=== PATIENT | female | born 1940 | race Caucasian/White ===

== ENCOUNTER 2023-02-06 06:42 | Day surgery (SDC) | payer OTHER ==
[2023-02-05 11:10] LABS: ALBUMIN 3.2 G/DL (3.4-5.0); ANION GAP 4 (8-16); BLOOD UREA NITROGEN 22 MG/DL (7-18); BUN/CREATININE RATIO 19.1 (10.0-20.0); CALCIUM 10.2 MG/DL (8.5-10.1); CHLORIDE 105 MMOL/L (99-107); CREATININE 1.15 MG/DL (0.40-0.90); GLUCOSE 105 MG/DL (70-104); POTASSIUM 4.2 MMOL/L (3.5-5.1); SODIUM 139 MMOL/L (135-145); eGFR 45 ML/MIN
[2023-02-05 11:11] LABS: BASOPHILS # (AUTO) 0.1 X10'3 (0-0.2); BASOPHILS % (AUTO) 0.8 % (0-1); EOSINOPHILS # (AUTO) 0.2 X10'3 (0-0.9); EOSINOPHILS % (AUTO) 2.3 % (0-6); HEMATOCRIT 40.8 % (35.0-45.0); HEMOGLOBIN 13.4 g/dl (12.0-16.0); INR 1.1 INR; LYMPHOCYTES # (AUTO) 1.5 X10'3 (1.1-4.8); MEAN CORPUSCULAR HEMOGLOBIN 30.5 PG (27.0-31.0); MEAN CORPUSCULAR HGB CONC 32.9 g/dL (33.0-36.5); MEAN CORPUSCULAR VOLUME 92.5 FL (78-98); MEAN PLATELET VOLUME 7.6 FL (7.4-10.4); MONOCYTES # (AUTO) 0.6 X10'3 (0-0.9); MONOCYTES % (AUTO) 9.1 % (2-12); NEUTROPHILS # (AUTO) 4.3 X10'3 (1.8-7.7); NEUTROPHILS % (AUTO) 64.8 % (42-75); PLATELET COUNT 209 X10'3 (140-440); PROTHROMBIN TIME 11.3 SECONDS (9.0-12.0); RED BLOOD COUNT 4.41 X10'6 (4.20-5.60); RED CELL DISTRIBUTION WIDTH 14.5 % (11.5-14.5); WHITE BLOOD COUNT 6.6 X10'3 (4.5-11.0)
[~2023-02-06] VITALS: Ht 160 cm; Wt 143.1 kg
[2023-02-06] VITALS (15 sets, daily range): BP systolic 104–154; BP diastolic 59–117; PULSE 52–135; RESP 12–26; TEMP 98.2; O2SAT 93–98
[2023-02-06] MEDS ORDERED: morphine 10mg/ml inj. IV ONE (07:10)
[2023-02-06] MEDS ORDERED: MIDAZolam 1mg/ml 10ml vial IV ONE (07:10)
[2023-02-06] MEDS ORDERED: amiodarone 150mg/dext, iso-os 100 ML IV ONE (07:10)
[2023-02-06] MEDS ORDERED: atropine 0.1mg/ml 10ml syringe IV ONE (07:10)
[2023-02-06] MEDS ORDERED: diphenhydrAMINE 25mg capsule PO ONE (07:10)
[2023-02-06] MEDS ORDERED: normal saline 1000ml 1,000 ML IV SCH (07:10)
[2023-02-06] MEDS ORDERED: LORazepam 0.5 MG tablet PO ONE (07:10)
[2023-02-06] MEDS ORDERED: DILT120C19 PO (07:15)
[2023-02-06] MEDS ORDERED: SOTA80TA73 PO (07:15)
[2023-02-06] MEDS ORDERED: FURO20TA4 PO (07:15)
[2023-02-06] MEDS ORDERED: UBID100C16 PO (07:15)
[2023-02-06] MEDS ORDERED: OMEG-5 PO (07:15)
[2023-02-06] MEDS ORDERED: ROSU20TA73 PO (07:15)
[2023-02-06] MEDS ORDERED: BENA40TA90 PO (07:15)
[2023-02-06] MEDS ORDERED: ASPI-1264 PO (07:15)
[2023-02-06] MEDS ORDERED: CHOL20002 PO (07:15)
== END 2023-02-06 10:55 | disposition home or self-care (01) ==
LOC: SSTAY O 06:42
PROVIDERS: ATTEND Internal Medicine Cardiovascular Disease
DX: I48.91 Unspecified atrial fibrillation (principal); I48.92 Unspecified atrial flutter; I08.3 Combined rheumatic disorders of mitral, aortic and tricuspid valves; I10 Essential (primary) hypertension; E78.5 Hyperlipidemia, unspecified; G47.30 Sleep apnea, unspecified; Z79.01 Long term (current) use of anticoagulants; Z79.82 Long term (current) use of aspirin; Z79.899 Other long term (current) drug therapy
CPT/HCPCS: 36415; 80048; 85025; 85610; 92960; 93005; 93312; 94760; J2250; J2274; J7030; 96360; A4620

== ENCOUNTER 2023-09-06 08:56 | Emergency (ER) | payer OTHER ==
[~2023-09-06] VITALS: Ht 157.5 cm; Wt 137.7 kg
[~2023-09-06 08:56] MED LIST: ASPI-1264 PO; BENA40TA90 PO; CHOL20002 PO; DILT120C19 PO; FURO20TA4 PO; OMEG-5 PO; ROSU20TA73 PO; SOTA80TA73 PO; UBID100C16 PO
[2023-09-06] MEDS ORDERED: KRIL1CAP40 PO (09:51)
[2023-09-06] MEDS ORDERED: FLUT9.9S16 BOTHNARES (09:51)
[2023-09-06] MEDS ORDERED: PRED20TA PO (11:57)
[2023-09-06] MEDS ORDERED: FAMO-128 PO (11:57)
[2023-09-06] MEDS: famotidine 20mg tablet PO ONE (12:07)
[2023-09-06] MEDS: dexamethasone sod phosphate 10mg/ml inj PO STA (12:07)
[2023-09-06 12:32] VITALS: BP 173/67; PULSE 59; RESP 18; TEMP 98.6; O2SAT 96
== END 2023-09-06 12:33 | disposition home or self-care (01) ==
LOC: ER 08:57
DX: K13.0 Diseases of lips (principal); T45.0X5A Adverse effect of antiallergic and antiemetic drugs, initial encounter; I10 Essential (primary) hypertension; Z88.0 Allergy status to penicillin; Z88.5 Allergy status to narcotic agent; Z91.010 Allergy to peanuts; Z79.899 Other long term (current) drug therapy; Y92.89 Other specified places as the place of occurrence of the external cause
CPT/HCPCS: 99283; J1100

== ENCOUNTER 2024-01-05 08:48 | Inpatient (IN) | payer OTHER ==
[~2024-01-05] VITALS: Ht 157.5 cm; Wt 135.4 kg
[~2024-01-05 08:48] MED LIST changes: -ASPI-1264 PO; +FAMO-128 PO; +FLUT9.9S16 BOTHNARES; +KRIL1CAP40 PO; -OMEG-5 PO
[2024-01-05 09:20] VITALS: PULSE 56; RESP 18; O2SAT 98
[2024-01-05] MEDS: ipratropium/albuterol 3ml nebule NEB ONE (09:20)
[2024-01-05 09:26] VITALS: PULSE 59; RESP 16; O2SAT 98
[2024-01-05 09:36] LABS: BASOPHILS # (AUTO) 0.1 X10'3 (0-0.2); BASOPHILS % (AUTO) 0.8 % (0-1); EOSINOPHILS # (AUTO) 0.2 X10'3 (0-0.9); EOSINOPHILS % (AUTO) 2.5 % (0-6); HEMATOCRIT 41.1 % (35.0-45.0); HEMOGLOBIN 13.4 g/dl (12.0-16.0); LYMPHOCYTES # (AUTO) 1.2 X10'3 (1.1-4.8); LYMPHOCYTES % (AUTO) 18.5 % (21-51); MEAN CORPUSCULAR HEMOGLOBIN 30.3 PG (27.0-31.0); MEAN CORPUSCULAR HGB CONC 32.6 g/dL (33.0-36.5); MEAN CORPUSCULAR VOLUME 92.8 FL (78-98); MEAN PLATELET VOLUME 7.4 FL (7.4-10.4); MONOCYTES # (AUTO) 0.6 X10'3 (0-0.9); MONOCYTES % (AUTO) 8.9 % (2-12); NEUTROPHILS # (AUTO) 4.4 X10'3 (1.8-7.7); NEUTROPHILS % (AUTO) 69.3 % (42-75); PLATELET COUNT 201 X10'3 (140-440); RED BLOOD COUNT 4.43 X10'6 (4.20-5.60); RED CELL DISTRIBUTION WIDTH 15.6 % (11.5-14.5); WHITE BLOOD COUNT 6.4 X10'3 (4.5-11.0)
[2024-01-05 09:53] LABS: ALANINE AMINOTRANSFERASE 16 U/L (12-78); ALBUMIN 3.4 G/DL (3.4-5.0); ALKALINE PHOSPHATASE 145 IU/L (46-116); ANION GAP 8 (8-16); ASPARTATE AMINO TRANSFERASE 17 U/L (10-37); BILIRUBIN,TOTAL 1.7 MG/DL (0.1-1.0); BLOOD UREA NITROGEN 15 MG/DL (7-18); BUN/CREATININE RATIO 16.1 (10.0-20.0); CALCIUM 10.3 MG/DL (8.5-10.1); CHLORIDE 107 MMOL/L (99-107); CREATININE 0.93 MG/DL (0.40-0.90); GLUCOSE 107 MG/DL (70-104); POTASSIUM 4.3 MMOL/L (3.5-5.1); SODIUM 142 MMOL/L (135-145); TOTAL CARBON DIOXIDE 27.4 MMOL/L (24-32); TOTAL PROTEIN 6.9 G/DL (6.4-8.2); eCRCL 38 ML/MIN; eGFR 58 ML/MIN
[2024-01-05] MEDS: furosemide 40mg/4ml inj IV ONE (09:54)
[2024-01-05 09:57] LABS: PRO BRAIN NATRIURETIC PEPTIDE 2269 PG/ML (0-450)
[2024-01-05] MEDS ORDERED: potassium Cl 40MEQ/1/2NS 520ml 520 ML IV PRN (10:45)
[2024-01-05] MEDS ORDERED: magnesium hydroxide 30ml (MOM) UD suspension PO PRN (10:45)
[2024-01-05] MEDS ORDERED: acetaminophen 325mg tablet PO PRN (10:45)
[2024-01-05] MEDS ORDERED: ondansetron/PF 4mg/2ml inj IV PRN (10:45)
[2024-01-05] MEDS ORDERED: potassium Cl 20 mEq SR tablet PO PRN ×2 (10:45)
[2024-01-05] MEDS ORDERED: magnesium sulf-water 2g/50mL 50 ML IV PRN (10:45)
[2024-01-05] MEDS ORDERED: magnesium sulf-water 4G/100mL 100 ML IV PRN (10:45)
[2024-01-05] MEDS ORDERED: magnesium Cl slow-release 64mg tablet PO PRN (10:45)
[2024-01-05 17:43] VITALS: BP 171/68; PULSE 56; RESP 20; RESP 24; TEMP 98.3; O2SAT 97
[2024-01-05] MEDS: acetaminophen 325mg tablet PO SCH (17:50)
[2024-01-05] MEDS ORDERED: furosemide 40mg/4ml inj IV SCH (20:00)
[2024-01-05 20:30] VITALS: RESP 18
[2024-01-05] MEDS: furosemide 40mg/4ml inj IV SCH (20:40)
[2024-01-05 20:45] VITALS: PULSE 54; RESP 16; O2SAT 98
[2024-01-05] MEDS: enoxaparin 40mg/0.4ml syringe SQ SCH (21:20)
[2024-01-05 22:00] VITALS: BP 162/70; PULSE 57; RESP 18; TEMP 97.8; O2SAT 94
[2024-01-06] VITALS (8 sets, daily range): BP systolic 146–175; BP diastolic 71–77; PULSE 54–67; RESP 14–22; TEMP 97–98.2; O2SAT 95–98
[2024-01-06 05:59] LABS: BASOPHILS % (AUTO) 0.5 % (0-1); EOSINOPHILS # (AUTO) 0.1 X10'3 (0-0.9); EOSINOPHILS % (AUTO) 1.9 % (0-6); HEMATOCRIT 40.8 % (35.0-45.0); HEMOGLOBIN 13.5 g/dl (12.0-16.0); LYMPHOCYTES # (AUTO) 1.3 X10'3 (1.1-4.8); LYMPHOCYTES % (AUTO) 18.1 % (21-51); MEAN CORPUSCULAR HEMOGLOBIN 30.7 PG (27.0-31.0); MEAN CORPUSCULAR HGB CONC 33.1 g/dL (33.0-36.5); MEAN CORPUSCULAR VOLUME 92.6 FL (78-98); MEAN PLATELET VOLUME 7.4 FL (7.4-10.4); MONOCYTES # (AUTO) 0.9 X10'3 (0-0.9); MONOCYTES % (AUTO) 11.6 % (2-12); NEUTROPHILS % (AUTO) 67.9 % (42-75); PLATELET COUNT 185 X10'3 (140-440); RED BLOOD COUNT 4.41 X10'6 (4.20-5.60); RED CELL DISTRIBUTION WIDTH 15.3 % (11.5-14.5); WHITE BLOOD COUNT 7.4 X10'3 (4.5-11.0)
[2024-01-06 06:15] LABS: ALANINE AMINOTRANSFERASE 15 U/L (12-78); ALBUMIN 3.2 G/DL (3.4-5.0); ALBUMIN/GLOBULIN RATIO 0.9 (1.1-1.5); ALKALINE PHOSPHATASE 132 IU/L (46-116); ANION GAP 8 (8-16); ASPARTATE AMINO TRANSFERASE 14 U/L (10-37); BILIRUBIN,TOTAL 2.5 MG/DL (0.1-1.0); BLOOD UREA NITROGEN 16 MG/DL (7-18); CALCIUM 10.4 MG/DL (8.5-10.1); CHLORIDE 106 MMOL/L (99-107); CREATININE 0.94 MG/DL (0.40-0.90); GLUCOSE 100 MG/DL (70-104); POTASSIUM 4.1 MMOL/L (3.5-5.1); SODIUM 144 MMOL/L (135-145); TOTAL CARBON DIOXIDE 29.8 MMOL/L (24-32); TOTAL PROTEIN 6.6 G/DL (6.4-8.2); eCRCL 37 ML/MIN; eGFR 57 ML/MIN
[2024-01-06] MEDS ORDERED: loratadine 10mg tablet PO ONE ×3 (10:55→11:15)
[2024-01-06] MEDS: famotidine 20mg tablet PO SCH (11:03)
[2024-01-06] MEDS: loratadine 10mg tablet PO STA (11:03)
[2024-01-06] MEDS: diltiazem SR 60mg capsule (twice daily) PO SCH (11:04)
[2024-01-06] MEDS: sotalol 80mg tablet PO SCH (11:04)
[2024-01-06] MEDS: lisinopril 20mg tablet PO SCH (11:05)
[2024-01-06] MEDS ORDERED: famotidine 20mg tablet PO SCH ×2 (16:37→20:00)
[2024-01-06] MEDS ORDERED: sotalol 80mg tablet PO SCH (20:00)
[2024-01-06] MEDS ORDERED: lisinopril 20mg tablet PO SCH (20:00)
[2024-01-06] MEDS ORDERED: diltiazem SR 60mg capsule (twice daily) PO SCH (20:00)
[2024-01-06] MEDS: atorvastatin 20mg tablet PO SCH (20:45)
[2024-01-07] VITALS (7 sets, daily range): BP systolic 141–142; BP diastolic 58–72; PULSE 57–61; RESP 12–20; TEMP 96.4–97.5; O2SAT 90–97
[2024-01-07 06:32] LABS: BASOPHILS % (AUTO) 0.6 % (0-1); EOSINOPHILS # (AUTO) 0.2 X10'3 (0-0.9); HEMATOCRIT 40.9 % (35.0-45.0); HEMOGLOBIN 13.3 g/dl (12.0-16.0); LYMPHOCYTES # (AUTO) 1.5 X10'3 (1.1-4.8); LYMPHOCYTES % (AUTO) 19.1 % (21-51); MEAN CORPUSCULAR HEMOGLOBIN 29.9 PG (27.0-31.0); MEAN CORPUSCULAR HGB CONC 32.6 g/dL (33.0-36.5); MEAN CORPUSCULAR VOLUME 91.9 FL (78-98); MEAN PLATELET VOLUME 7.3 FL (7.4-10.4); MONOCYTES % (AUTO) 12.5 % (2-12); NEUTROPHILS # (AUTO) 4.9 X10'3 (1.8-7.7); NEUTROPHILS % (AUTO) 64.8 % (42-75); PLATELET COUNT 199 X10'3 (140-440); RED BLOOD COUNT 4.44 X10'6 (4.20-5.60); RED CELL DISTRIBUTION WIDTH 15.1 % (11.5-14.5); WHITE BLOOD COUNT 7.6 X10'3 (4.5-11.0)
[2024-01-07 06:50] LABS: ALANINE AMINOTRANSFERASE 16 U/L (12-78); ALBUMIN 3.1 G/DL (3.4-5.0); ALKALINE PHOSPHATASE 125 IU/L (46-116); ANION GAP 5 (8-16); ASPARTATE AMINO TRANSFERASE 18 U/L (10-37); BILIRUBIN,TOTAL 2.7 MG/DL (0.1-1.0); BLOOD UREA NITROGEN 20 MG/DL (7-18); BUN/CREATININE RATIO 19.2 (10.0-20.0); CALCIUM 10.4 MG/DL (8.5-10.1); CHLORIDE 103 MMOL/L (99-107); CREATININE 1.04 MG/DL (0.40-0.90); GLUCOSE 95 MG/DL (70-104); POTASSIUM 3.9 MMOL/L (3.5-5.1); SODIUM 142 MMOL/L (135-145); TOTAL CARBON DIOXIDE 33.6 MMOL/L (24-32); TOTAL PROTEIN 6.2 G/DL (6.4-8.2); eCRCL 34 ML/MIN; eGFR 51 ML/MIN
[2024-01-07] MEDS ORDERED: FLUTICASONE FUROATE BOTHNARES SCH (08:00)
[2024-01-07] MEDS ORDERED: [UNRECOGNIZED DRUG - OTHER] PO SCH (08:00)
[2024-01-07] MEDS ORDERED: PHOSPHO PO SCH (08:00)
[2024-01-07] MEDS ORDERED: AST PO SCH (08:00)
[2024-01-07] MEDS ORDERED: DHA PO SCH (08:00)
[2024-01-07] MEDS ORDERED: non-formulary drug (Ubidecarenone (Coq-10) 100 MG) PO SCH (08:00)
[2024-01-07] MEDS ORDERED: EPA PO SCH (08:00)
[2024-01-07] MEDS ORDERED: KRILL PO SCH (08:00)
[2024-01-07] MEDS: cholecalciferol (vitamin D3) 1,000 unit (25mcg) tablet PO SCH (08:20)
[2024-01-07] MEDS: furosemide 20MG tablet PO SCH (09:29)
[2024-01-07] MEDS: albuterol 2.5 MG/3 ML nebule NEB PRN (11:06)
== END 2024-01-07 13:00 | disposition home or self-care (01) | DRG 291 ==
LOC: ER 08:48 → ED HOLD 10:50 → PCU 3S 16:00
PROVIDERS: ADMIT Internal Medicine; ATTEND Internal Medicine
DX: I11.0 Hypertensive heart disease with heart failure (principal); I50.33 Acute on chronic diastolic (congestive) heart failure; J96.01 Acute respiratory failure with hypoxia; I48.91 Unspecified atrial fibrillation; Z88.0 Allergy status to penicillin; Z88.5 Allergy status to narcotic agent; Z88.8 Allergy status to other drugs, medicaments and biological substances; Z91.018 Allergy to other foods; Z79.899 Other long term (current) drug therapy; T78.40XA Allergy, unspecified, initial encounter; X58.XXXA Exposure to other specified factors, initial encounter
CPT/HCPCS: 36415; 71045; 80053; 83880; 84145; 84484; 85025; 85651; 87081; 87502; 87503; 87811; 93005; 93306; 94640; 94760; 97110; 97116; 97162; 99285; A4615; G0378; J1650; J1940

== ENCOUNTER 2024-04-21 06:56 | Day surgery (SDC) | payer OTHER ==
[2024-04-20 11:14] LABS: BASOPHILS # (AUTO) 0.1 X10'3 (0-0.2); EOSINOPHILS # (AUTO) 0.2 X10'3 (0-0.9); EOSINOPHILS % (AUTO) 3.2 % (0-6); HEMATOCRIT 40.1 % (35.0-45.0); HEMOGLOBIN 13.3 g/dl (12.0-16.0); LYMPHOCYTES # (AUTO) 1.6 X10'3 (1.1-4.8); LYMPHOCYTES % (AUTO) 24.9 % (21-51); MEAN CORPUSCULAR HEMOGLOBIN 31.6 PG (27.0-31.0); MEAN CORPUSCULAR HGB CONC 33.1 g/dL (33.0-36.5); MEAN CORPUSCULAR VOLUME 95.4 FL (78-98); MEAN PLATELET VOLUME 7.9 FL (7.4-10.4); MONOCYTES # (AUTO) 0.8 X10'3 (0-0.9); MONOCYTES % (AUTO) 12.2 % (2-12); NEUTROPHILS # (AUTO) 3.7 X10'3 (1.8-7.7); NEUTROPHILS % (AUTO) 58.7 % (42-75); PLATELET COUNT 209 X10'3 (140-440); RED BLOOD COUNT 4.21 X10'6 (4.20-5.60); RED CELL DISTRIBUTION WIDTH 17.2 % (11.5-14.5); WHITE BLOOD COUNT 6.3 X10'3 (4.5-11.0)
[2024-04-20 11:24] LABS: INR 1.2 INR; PROTHROMBIN TIME 12.3 SECONDS (9.0-12.0)
[2024-04-20 11:32] LABS: ALBUMIN 2.7 G/DL (3.4-5.0); ANION GAP 9 (8-16); BLOOD UREA NITROGEN 23 MG/DL (7-18); CALCIUM 9.7 MG/DL (8.5-10.1); CHLORIDE 103 MMOL/L (99-107); CREATININE 1.64 MG/DL (0.40-0.90); GLUCOSE 107 MG/DL (70-104); POTASSIUM 3.1 MMOL/L (3.5-5.1); SODIUM 141 MMOL/L (135-145); TOTAL CARBON DIOXIDE 29.3 MMOL/L (24-32); eCRCL 22 ML/MIN; eGFR 30 ML/MIN
[2024-04-21] VITALS (23 sets, daily range): BP systolic 95–128; BP diastolic 34–76; PULSE 39–61; RESP 12–19; TEMP 96.4; O2SAT 94–98
[~2024-04-21] VITALS: Ht 161.3 cm; Wt 124.7 kg
[~2024-04-21 06:56] MED LIST changes: -ROSU20TA73 PO; +ROSU20TA98 PO
[2024-04-21] MEDS ORDERED: FURO40TA4 PO (07:25)
[2024-04-21] MEDS ORDERED: METO-411 PO (07:25)
[2024-04-21] MEDS ORDERED: LAN0.125T PO (07:25)
[2024-04-21] MEDS ORDERED: AMI200T PO (07:25)
[2024-04-21] MEDS ORDERED: APIX5TAB3 PO (07:25)
[2024-04-21] MEDS: potassium Cl 20 mEq SR tablet PO STA (07:40)
[2024-04-21] MEDS: normal saline 1000ml 1,000 ML IV SCH (07:41)
[2024-04-21] MEDS ORDERED: atropine 0.1mg/ml 10ml syringe IV PRN (08:45)
[2024-04-21] MEDS: MIDAZolam 1mg/ml 10ml vial IV ONE (08:53)
[2024-04-21] MEDS: morphine 10mg/ml inj. IV ONE (08:53)
[2024-04-21] MEDS: atropine 0.1mg/ml 10ml syringe IV ONE (08:53)
[2024-04-21] MEDS ORDERED: diphenhydrAMINE 25mg capsule PO ONE (09:00)
[2024-04-21] MEDS ORDERED: LORazepam 0.5 MG tablet PO ONE (09:00)
[2024-04-21] MEDS ORDERED: amiodarone 150mg/dext, iso-os 100 ML IV ONE (09:00)
[2024-04-21] MEDS ORDERED: METO-539 PO (09:38)
== END 2024-04-21 11:05 | disposition home or self-care (01) ==
LOC: SSTAY O 06:56
PROVIDERS: ATTEND Internal Medicine Cardiovascular Disease
DX: I48.0 Paroxysmal atrial fibrillation (principal); I49.1 Atrial premature depolarization; R94.31 Abnormal electrocardiogram [ECG] [EKG]; I11.0 Hypertensive heart disease with heart failure; I50.22 Chronic systolic (congestive) heart failure; E78.5 Hyperlipidemia, unspecified; E66.9 Obesity, unspecified; J45.909 Unspecified asthma, uncomplicated; I35.0 Nonrheumatic aortic (valve) stenosis; Z79.01 Long term (current) use of anticoagulants; Z79.899 Other long term (current) drug therapy; Z90.49 Acquired absence of other specified parts of digestive tract; Z98.890 Other specified postprocedural states; Z88.0 Allergy status to penicillin; Z88.5 Allergy status to narcotic agent; Z88.8 Allergy status to other drugs, medicaments and biological substances; Z82.49 Family history of ischemic heart disease and other diseases of the circulatory system; Z80.9 Family history of malignant neoplasm, unspecified
CPT/HCPCS: 36415; 80048; 85025; 85610; 92960; 93005; J0461; J2250; J2274; J7030

== ENCOUNTER 2024-06-03 07:06 | Day surgery (SDC) | payer OTHER ==
[2024-06-02 15:15] LABS: BASOPHILS # (AUTO) 0.1 X10'3 (0-0.2); EOSINOPHILS # (AUTO) 0.1 X10'3 (0-0.9); EOSINOPHILS % (AUTO) 1.8 % (0-6); HEMATOCRIT 38.6 % (35.0-45.0); HEMOGLOBIN 12.9 g/dl (12.0-16.0); LYMPHOCYTES # (AUTO) 1.4 X10'3 (1.1-4.8); LYMPHOCYTES % (AUTO) 25.1 % (21-51); MEAN CORPUSCULAR HEMOGLOBIN 32.6 PG (27.0-31.0); MEAN CORPUSCULAR HGB CONC 33.5 g/dL (33.0-36.5); MEAN CORPUSCULAR VOLUME 97.5 FL (78-98); MEAN PLATELET VOLUME 7.6 FL (7.4-10.4); MONOCYTES # (AUTO) 0.6 X10'3 (0-0.9); MONOCYTES % (AUTO) 10.7 % (2-12); NEUTROPHILS # (AUTO) 3.5 X10'3 (1.8-7.7); NEUTROPHILS % (AUTO) 61.4 % (42-75); PLATELET COUNT 238 X10'3 (140-440); RED BLOOD COUNT 3.96 X10'6 (4.20-5.60); RED CELL DISTRIBUTION WIDTH 15.4 % (11.5-14.5); WHITE BLOOD COUNT 5.8 X10'3 (4.5-11.0)
[2024-06-02 15:26] LABS: ALBUMIN 3.2 G/DL (3.4-5.0); ANION GAP 7 (8-16); BLOOD UREA NITROGEN 21 MG/DL (7-18); BUN/CREATININE RATIO 14.6 (10.0-20.0); CALCIUM 10.3 MG/DL (8.5-10.1); CHLORIDE 105 MMOL/L (99-107); CREATININE 1.44 MG/DL (0.40-0.90); GLUCOSE 92 MG/DL (70-104); POTASSIUM 3.4 MMOL/L (3.5-5.1); SODIUM 143 MMOL/L (135-145); TOTAL CARBON DIOXIDE 30.9 MMOL/L (24-32); eGFR 35 ML/MIN
[2024-06-02 15:29] LABS: APTT 29 SECONDS (22-32); INR 1.1 INR; PROTHROMBIN TIME 11.9 SECONDS (9.0-12.0)
[~2024-06-03] VITALS: Ht 160 cm; Wt 140.0 kg
[2024-06-03] VITALS (7 sets, daily range): BP systolic 130–135; BP diastolic 80–95; PULSE 80–90; RESP 13–17; TEMP 98.3; O2SAT 93–97
[~2024-06-03 07:06] MED LIST changes: +AMI200T PO; +APIX5TAB3 PO; -BENA40TA90 PO; -DILT120C19 PO; -FAMO-128 PO; -FURO20TA4 PO; +FURO40TA4 PO; -KRIL1CAP40 PO; +LAN0.125T PO; +METO-411 PO; +METO-539 PO; -ROSU20TA98 PO; -SOTA80TA73 PO
[2024-06-03] MEDS ORDERED: normal saline 1000ml 1,000 ML IV ONE (07:40)
[2024-06-03] MEDS ORDERED: clindamycin-Cleocin 900mg/D5W 50 ML IV ONE (07:45)
[2024-06-03] MEDS ORDERED: METO-395 PO (07:52)
[2024-06-03] MEDS ORDERED: AMI200T PO (07:53)
[2024-06-03] MEDS ORDERED: ALBU18HF2 PO (07:56)
[2024-06-03] MEDS ORDERED: IPRA30SP (07:57)
[2024-06-03] MEDS ORDERED: midazolam 1 mg/ML 2ml injection ONE ×3 (08:31→11:18)
[2024-06-03] MEDS ORDERED: fentaNYL/PF 50MCG/1 ML 2ML syringe ONE ×2 (08:31→11:18)
[2024-06-03] MEDS ORDERED: ceFAZolin 1000mg inj ONE (08:31)
[2024-06-03] MEDS ORDERED: LIDOcaine 1% W/epiNEPHrine 1:100,000 20ml vial ONE (08:31)
[2024-06-03] MEDS ORDERED: iohexol 350 MG/ML 50ML vial IV ONE (10:18)
[2024-06-03] MEDS ORDERED: diphenhydrAMINE 50 mg/ml inj ONE (10:49)
[2024-06-03] MEDS ORDERED: metoprolol tartrate 1mg/ml inj IV ONE ×2 (10:53→11:10)
[2024-06-03] MEDS ORDERED: amiodarone 50MG/ML inj IV ONE (11:23)
[2024-06-03] MEDS: vancomycin/NS 1 GM ADD-VANTAGE 250 ML X 1 DOSE IV ONE (14:44)
[2024-06-03] MEDS ORDERED: HYDROcodone/acetaminophen 5mg/325mg tablet PO PRN (15:05)
[2024-06-03] MEDS: HYDROcodone/acetaminophen 10/325mg tab PO PRN (15:13)
[2024-06-03] MEDS ORDERED: CLIN300C3 PO (15:18)
== END 2024-06-03 17:15 | disposition home or self-care (01) ==
LOC: SSTAY O 07:06
PROVIDERS: ATTEND Internal Medicine Cardiovascular Disease
DX: I49.5 Sick sinus syndrome (principal); R00.0 Tachycardia, unspecified; I11.0 Hypertensive heart disease with heart failure; I50.22 Chronic systolic (congestive) heart failure; I48.20 Chronic atrial fibrillation, unspecified; I48.0 Paroxysmal atrial fibrillation; E78.5 Hyperlipidemia, unspecified; Z78.0 Asymptomatic menopausal state; Z79.899 Other long term (current) drug therapy; J45.909 Unspecified asthma, uncomplicated; Z90.49 Acquired absence of other specified parts of digestive tract; Z98.890 Other specified postprocedural states; Z88.0 Allergy status to penicillin; Z88.5 Allergy status to narcotic agent; Z88.8 Allergy status to other drugs, medicaments and biological substances
CPT/HCPCS: 33208; 36415; 71046; 80048; 85025; 85610; 85730; 92960; 93005; 99152; 99153; C1785; C1898; J0282; J1200; J2250; J3010; J3370; J3490; J7030; Q9967; A4565; A6258; A6449; J0690